=== PATIENT | male | born 1995 | race Caucasian/White ===

== ENCOUNTER 2016-10-06 10:37 | Emergency (ER) | payer OTHER ==
[~2016-10-06] VITALS: Ht 175.3 cm; Wt 68.2 kg
[2016-10-06 10:41] VITALS: BP 123/81; PULSE 65; RESP 15; O2SAT 99
--- NOTE | 2016-10-06 11:05 | ED.REPORT ---
HPI-Extremity Problem Lower Date of Service Oct 06, 2016 ED Provider: Ida Torres History of Present Illness: 20-year-old male here for left knee laceration. He was using a chain saw at work today and it slipped and hit his right knee. There is a V-shaped laceration on his knee. Bleeding is controlled upon arrival. Not up-to-date on tetanus. Nursing Notes Stated Complaint: L AND I/LACERATION ON LT LEG Chief Complaint: Extremity Trauma Nursing Notes Reviewed: Yes Allergies: Coded Allergies: No Known Allergies (Unverified , 10/06/16) General Time Seen by MD: 11:04 Chief Complaint Knee injury left Hx Obtained From: Patient Arrived By: Walk-in Onset Occurred: 1 - 4 hours ago Symptom Duration: Constant Caused by: Accidental Context: Occurred at: Workplace Location: : Leg left Severity: Current: Moderate Severity: Maximum: Moderate Pertinent Negative: Pt denies other symptoms Immunizations: None up to date Similar Sx Previous: No Past Medical History Past Medical History Notes: denies Review of Systems Review of Systems Note: Left knee laceration Basic Review of Systems Eyes: Vision NL, No discharge Respiratory: No shortness of breath, No cough, No wheeze Cardiovascular: No chest pain, No dyspnea on exertion, No orthopnea, No parox noct dyspnea, No palpitations Allergy / Immune: No allergy Psychiatric: Normal thought content Constitutional: Denies: Fever Musculoskeletal: Reports: Extremity pain Complete sys rev & neg: except as marked. Physical Exam Initial Vital Signs Vital Signs (First) Date Time Temp Pulse Resp B/P Pulse Ox O2 Delivery O2 Flow Rate FiO2 10/06/16 10:41 36 65 15 123/81 99 Room Air Initial VS: Reviewed, Vital signs normal General/Constitutional: Well-developed, Well-nourished Head / Eyes: Atraumatic, Normocephalic, PERRL Respiratory: Breath sounds normal, Clear to auscultation, No respiratory distress Cardiovascular: Regular rate & rhythm, Heart sounds normal, Intact distal pulses Skin: Warm, Dry, No cyanosis Neurologic: Alert, Oriented, Nonfocal Psychiatric: Mood/affect normal, Behavior normal, Normal thought content Lower Extremity / Pelvis / MS: No erythema, No deformity, Neurologic intact, Vascular intact, No ligamentous injury, Tendon function NL Lower Ext Brief Normals: Knee R exam normal v shaped lac over L patella. normal exam distal to knee Procedures Laceration Management Procedure Performed by: Allied health pract Consent / Setup / Site Prep: Informed consent provided Location of Wound: L patella, 1.5x1.5 cm lac Local Anesthesia: Lidocaine w epi 1% Digital Block: No Wound Preparation: Shurclens, Betadine Debridement: Minimal Irrigation: Copious Foreign Body Explore / Removal: Explored for foreign body Repair Skin: ___ O (5), Nylon # Sutures - Skin: 6 Closure Layers: 1 Suture Technique: Simple Post-Procedure / Complications: Dressing applied, No complications Re-Eval/Medical Decision Med Decision/Clinical Course discussed risk of not updating on tetanus, pt understands. Discussed follow-up with patient follow-up in 1-2 days to establish his L&I at a walk in clinic in [place]. Discussed to watch for signs of infection and return if these occur. prior to departure, pt accepted TDAP, he was immunized. Discharge & Departure Shift Change Sign-Out Procedures: Results discussed Response to Therapy: Improved Impression: Primary Impression: Laceration of knee, left Encounter type: initial encounter Qualified Code: S81.012A - Laceration without foreign body, left knee, initial encounter Disposition: Home Discharge Condition All VS Reviewed: Yes Condition: Stable Patient Instructions: Acute Wound Care (ED) Additional Instructions: Monitor for signs of infection including redness, purulent drainage, increasing pain and swelling and follow up in the emergency room at a walk in clinic of these occur. You should follow up walking clinic in 1-2 days to establish your L&I. Until then no kneeling or walking upstairs. Keep knee as straight as possible throughout the day to keep the sutures intact. Do not get wet for 24 hours then shower as usual, washing gently with soap and water. Do not soak, no hot tabs, pools or swimming in outside water. If you change your mind on the tetanus vaccination please get it at any time. EDSupervising Provider for [facility]: Braeden Terry MD, Linnea K ARNP Oct 06, 2016 11:05
[2016-10-06] MEDS ORDERED: TdaP Vaccine 0.5 mL Inj IM ONE ×2 (11:55→12:40)
[2016-10-06 12:27] VITALS: BP 121/64; PULSE 61; RESP 20; O2SAT 99
== END 2016-10-06 12:32 | disposition home or self-care (01) ==
LOC: SED 10:37
DX: S81.012A Laceration without foreign body, left knee, initial encounter (principal); W29.3XXA Contact with powered garden and outdoor hand tools and machinery, initial encounter; Y93.89 Activity, other specified; Y92.69 Other specified industrial and construction area as the place of occurrence of the external cause; Y99.0 Civilian activity done for income or pay